=== PATIENT | male | born 1960 | race Caucasian/White ===

== ENCOUNTER 2017-04-14 10:59 | Emergency (ER) | payer OTHER ==
--- NOTE | 2017-04-14 13:36 | DIAGNOSTIC IMAGING REPORT ---
PROCEDURE: US ABDOMEN ULTRASOUND-LIMITED INDICATION: RUQ ABDO PAIN TECHNIQUE: Avery scale and color Doppler sonographic images were obtained of the right upper quadrant. COMPARISON: None. FINDINGS: The liver is normal size and contour with moderate diffuse parenchymal hyper echogenicity. No mass or biliary dilatation. There is relative hypo echogenicity in the gallbladder fossa. The gallbladder is normal without stones or sludge. Normal wall thickness at 2.1 mm. No pericholecystic fluid or Hinton's sign. The common duct is normal measuring 5.0 mm. The visible portion of the inferior vena cava, abdominal aorta, and portal vein appear normal with appropriate direction of flow in the portal vein. The right kidney is normal measuring 10.3 cm. No free fluid in the right upper quadrant. IMPRESSION: 1. Moderate hepatic steatosis (or other intrinsic liver disease). 2. Normal gallbladder.
--- NOTE | 2017-04-14 14:06 | ED NURSING NOTES ---
Clinical Report - Nurses [facility] [address] [place] [address] 04/14/2017 11:01 Patient: ANGIE TEJEDA TRIAGE Triage time 11:Apr 14 2017. Acuity: LEVEL 3. Chief Complaint: ABDOMINAL PAIN. Alert. No acute distress. SOLANGE COMA SCORE: Solange Coma Scale: 15- eyes open spontaneously (4); best verbal response- oriented x 4 (5); best motor response- obeys commands (6). --11:17 Angeles Weiss R.N. 11:12 04/14/17. BP: 141/88. HR: 80. RR: 16. O2 saturation: 98%. Temp: 98.4 F. Pain level now: 05/06. --11:17 Angeles Weiss R.N. Weight: 101.6 kg stated. Height/Length: 69 inches Per Patient. BMI: 33.1. --11:15 Angeles Weiss R.N. Medications [place] Oral. --11:13 Angeles Weiss R.N. AmLODIPine Besylate Oral. --11:13 Angeles Weiss R.N. Allergies None. --11:13 Angeles Weiss R.N. History Arrived by private vehicle. Historian: patient. This is a recurrent problem. (September 2016). Last oral intake by patient was 8 hours ago. 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 PAST MEDICAL HX: Immunizations: status is unknown. SOCIAL HX: Never smoker. Regular alcohol use. No drug use. No recent travel. No infectious disease exposure. No known contact with a sick individual. SELF HARM ASSESSMENT: A self harm assessment was performed. The patient answered "no" to the question "Do you have thoughts of harming or killing yourself?". FALL RISK ASSESSMENT: Fall risk assessment completed. No fall risk identified. NUTRITIONAL RISK ASSESSMENT: The nutritional risk assessment revealed no deficiencies. FUNCTIONAL ASSESSMENT: Functional assessment: no impairments noted. LEARNING NEEDS ASSESSMENT: The learning needs assessment revealed no barriers. ABUSE ASSESSMENT: Abuse assessment: The patient was asked "Do you feel safe in your home?". SKIN INTEGRITY ASSESSMENT: Skin integrity risk assessment completed. No skin integrity risk identified. --11:17 Angeles Weiss R.N. PROBLEMS: Hypertension. --11:14 Angeles Weiss R.N. ADDITIONAL SURGERIES: Hip Surgery. --11:14 Angeles Weiss R.N. Interventions ID band on patient. --11:17 Angeles Weiss R.N. PHYSICAL ASSESSMENT GENERAL / NEURO / PSYCH: Alert. Oriented X 4. Appears in no acute distress. RESPIRATORY: Respirations not labored. CVS: Capillary refill less than 2 seconds. GI / : Abdomen soft. Abdominal tenderness in the upper abdomen. SKIN: Skin is warm and dry. --11:18 Angeles Weiss R.N. NURSING PROGRESS NOTES Patient gowned. Head of bed elevated. Patient identifiers checked. Call light placed in reach. Side rails up x 1. Bed placed in lowest position. Brakes of bed on. Patient ready for evaluation- chart flagged. --11:18 Angeles Weiss R.N. 11:49 04/14/2017 Toradol (Ketorolac Tromethamine) IM 60 mg given. Given in the left ventral gluteus (split dose). Allergies verified and confirmed 5 rights. --11:49 Angeles Weiss R.N. DISPOSITION / DISCHARGE Departure time: 14:22 Apr 14 2017. No learning barriers present. Discharge instructions provided and reviewed with the patient and the patient left prior to discharge education being provided. Reviewed medication(s) side effects, precautions, dosing and course information. Prescription(s) given to the patient. Patient verbalized understanding. Written instructions provided in [place]. The patient was discharged home. He left the Emergency Department ambulatory and via private vehicle. Patient driving. ( pt left department. When nurse went to have admitting send rx and dc instructions pt was in lobby stating that he went and ordered food. pt signed dc instructions but did not return to department for last set of vital signs.). --14:22 Angeles Weiss R.N. Locked/Released at 04/14/2017 14:23 by Angeles Weiss R.N.
--- NOTE | 2017-04-14 14:06 | ED CLINICAL REPORT ---
Clinical Report - Physicians/Mid Levels [facility] [address] [place] [address] 04/14/2017 11:01 Patient: ANGIE TEJEDA Time Seen: 1135. Arrived- By private vehicle. Historian- patient. HISTORY OF PRESENT ILLNESS Chief Complaint: ABDOMINAL PAIN. At its maximum, severity described as moderate. When seen in the E.D., it was almost gone. Modifying factors- (does not know what makes it better or worse.). It is described as sharp. No radiation. It is described as located in the right upper quadrant. This started past several days and is still present but is improving. It was abrupt in onset and has been intermittent but is not gone now. No nausea, loss of appetite, vomiting or diarrhea. No additional abdominal pain. No recent travel. Similar symptoms previously: None. Recent medical care: The patient was seen recently in a clinic. ( had laboratory studies drawn and was told to go to the emergency department for evaluation.). REVIEW OF SYSTEMS No chest pain, difficulty breathing or skin rash. All systems otherwise negative, except as recorded above. PAST HISTORY See nurses notes. Medications: AmLODIPine Besylate Oral. [place] Oral. Allergies: None. SOCIAL HISTORY Never smoker. No alcohol use or drug use. No recent travel. Is a local resident. ADDITIONAL NOTES The nursing notes have been reviewed. PHYSICAL EXAM Vital Signs: 04/14/2017 11:12 BP: 141/88. HR: 80. RR: 16. O2 saturation: 98%. Temp: 98.4 F. Pain level now: 6/10. Oxygen saturation normal. Appearance: Alert. Oriented X3. No acute distress. Eyes: Pupils equal, round and reactive to light. Eyes normal inspection. No scleral icterus or pale conjunctivae. ENT: Ears normal. Nose normal. Pharynx normal. Neck: Normal inspection. Neck supple. CVS: Normal heart rate and rhythm. Heart sounds normal. Pulses normal. Respiratory: No respiratory distress. Breath sounds normal. Chest nontender. No rales, rhonchi or wheezes. Abdomen: Soft and nontender. Bowel sounds normal. No mass. (negative Hinton's. No tenderness at McBurney's. No rebound or guarding.). Skin: Skin warm and dry. Normal skin color. No rash. Normal skin turgor. Extremities: Extremities exhibit normal ROM. No lower extremity edema. Neuro: Oriented X 3. No motor deficit. No sensory deficit. PROGRESS AND PROCEDURES Course of Care: he patient is a pleasant 57-year-old male presenting for evaluation of epigastric/right upper quadrant abdominal pain. Because the patient's presentation, differential diagnosis includes biliary colic versus bronchitis versus hepatitis. Patient is agreeable to the treatment and plan. All questions have been answered. P next-door and does not want his blood studies to be taken again. Patient is resting in bed and in no acute distress. abdomen has an overall benign examination. Patient will be evaluated with ultrasound. Patient's workup does not show any acute abnormalities except for hepatic steatosis. 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 Patient continues to decline this offer is at this time. Had a discussih to symptoms here In the emergency department. Patient currently States he does not want to have been drawn and will follow-up in the clinic. Patient states he feels overall much better and would like to go home. I discussion with the patient in regards to his workup here in the emergency department and diagnostic uncertainty particularly withnot obtaining laboratory studies. Patient expressed full understanding of these limitations and is agreeable to being discharged. Do not feel I can force the patient undergoes invasive diagnostic testing particularly repeat testing. The patient understands he is welcome to return to the emergency department at any time for reevaluation. Patient continues to be nontoxic and in no acute distress. Repeat examination is benign. Because of this, feel the patient is a stable outpatient candidate. Discussed with the patient is workup here in the emergency department including diagnosis, home care, follow-up, and return precautions. All questions have been answered. The patient expressed understanding of these instructions and was agreeable to them. Disposition: Discharged. Condition: good. CLINICAL IMPRESSION Acute right upper quadrant abdominal pain of unknown cause. hepatic steatosis (fatty liver). INSTRUCTIONS Warnings: GENERAL WARNINGS: Return or contact your physician immediately if your condition worsens or changes unexpectedly, if not improving as expected, or if other problems arise. SPECIFICALLY, return if you develop pain, fever, vomiting, the inability to keep fluids down, blood in vomitus, blood in diarrhea, fainting or lightheadedness. Your Current Medications: CONTINUE TAKING THE FOLLOWING MEDICATIONS: AmLODIPine Besylate Oral. [place] Oral. Prescription Medications: Motrin 600 mg tablets: take 1 tablet orally every 6 hours as needed for pain, stiffness or swelling. Dispense thirty (30). No refill. Substitution is permissible. (take with food) Follow-up: Return to the emergency department as needed. Follow up with your doctor in three days. Reason for referral: recheck today's concerns. Summary of care provided to patient via paper. Screening today revealed the patient's blood pressure to be in the normal range. The patient should follow up with a primary care provider for blood pressure management. Understanding of the discharge instructions verbalized by patient. (Electronically signed by Efrain Pagan Dr. 04/20/2017 14:47)
--- NOTE | 2017-04-14 14:06 | ED NURSING NOTES ---
Clinical Report - Nurses [facility] [address] [place] [address] 04/14/2017 11:01 Patient: ANGIE TEJEDA TRIAGE Triage time 11:Apr 14 2017. Acuity: LEVEL 3. Chief Complaint: ABDOMINAL PAIN. Alert. No acute distress. SOLANGE COMA SCORE: Solange Coma Scale: 15- eyes open spontaneously (4); best verbal response- oriented x 4 (5); best motor response- obeys commands (6). --11:17 Angeles Weiss R.N. 11:12 04/14/17. BP: 141/88. HR: 80. RR: 16. O2 saturation: 98%. Temp: 98.4 F. Pain level now: 05/06. --11:17 Angeles Weiss R.N. Weight: 101.6 kg stated. Height/Length: 69 inches Per Patient. BMI: 33.1. --11:15 Angeles Weiss R.N. Medications [place] Oral. --11:13 Angeles Weiss R.N. AmLODIPine Besylate Oral. --11:13 Angeles Weiss R.N. Allergies None. --11:13 Angeles Weiss R.N. History Arrived by private vehicle. Historian: patient. This is a recurrent problem. (September 2016). Last oral intake by patient was 8 hours ago. 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 PAST MEDICAL HX: Immunizations: status is unknown. SOCIAL HX: Never smoker. Regular alcohol use. No drug use. No recent travel. No infectious disease exposure. No known contact with a sick individual. SELF HARM ASSESSMENT: A self harm assessment was performed. The patient answered "no" to the question "Do you have thoughts of harming or killing yourself?". FALL RISK ASSESSMENT: Fall risk assessment completed. No fall risk identified. NUTRITIONAL RISK ASSESSMENT: The nutritional risk assessment revealed no deficiencies. FUNCTIONAL ASSESSMENT: Functional assessment: no impairments noted. LEARNING NEEDS ASSESSMENT: The learning needs assessment revealed no barriers. ABUSE ASSESSMENT: Abuse assessment: The patient was asked "Do you feel safe in your home?". SKIN INTEGRITY ASSESSMENT: Skin integrity risk assessment completed. No skin integrity risk identified. --11:17 Angeles Weiss R.N. PROBLEMS: Hypertension. --11:14 Angeles Weiss R.N. ADDITIONAL SURGERIES: Hip Surgery. --11:14 Angeles Weiss R.N. Interventions ID band on patient. --11:17 Angeles Weiss R.N. PHYSICAL ASSESSMENT GENERAL / NEURO / PSYCH: Alert. Oriented X 4. Appears in no acute distress. RESPIRATORY: Respirations not labored. CVS: Capillary refill less than 2 seconds. GI / : Abdomen soft. Abdominal tenderness in the upper abdomen. SKIN: Skin is warm and dry. --11:18 Angeles Weiss R.N. NURSING PROGRESS NOTES Patient gowned. Head of bed elevated. Patient identifiers checked. Call light placed in reach. Side rails up x 1. Bed placed in lowest position. Brakes of bed on. Patient ready for evaluation- chart flagged. --11:18 Angeles Weiss R.N. 11:49 04/14/2017 Toradol (Ketorolac Tromethamine) IM 60 mg given. Given in the left ventral gluteus (split dose). Allergies verified and confirmed 5 rights. --11:49 Angeles Weiss R.N. DISPOSITION / DISCHARGE Departure time: 14:22 Apr 14 2017. No learning barriers present. Discharge instructions provided and reviewed with the patient and the patient left prior to discharge education being provided. Reviewed medication(s) side effects, precautions, dosing and course information. Prescription(s) given to the patient. Patient verbalized understanding. Written instructions provided in [place]ian. The patient was discharged home. He left the Emergency Department ambulatory and via private vehicle. Patient driving. ( pt left department. When nurse went to have admitting send rx and dc instructions pt was in lobby stating that he went and ordered food. pt signed dc instructions but did not return to department for last set of vital signs.). --14:22 Angeles Weiss R.N. Locked/Released at 04/14/2017 14:23 by Angeles Weiss R.N.
--- NOTE | 2017-04-14 14:07 | ED ORDER SUMMARY ---
..... Patient: ANGIE TEJEDA OrderSheet [facility] VisitID: [id number] [place] [address] 57y, M Registration Date/Time: 04/14/2017 ORDER SHEET Weight: 101.6 kg (stated) Allergies: None GENERAL ORDERS: US Abdomen Limited (No) Urgent (11:41 04/14/2017 Addison Jules) ([facility] 11:58 [facility]) (14:23 Rah R.N.) MEDICATION ORDERS: Toradol IM 60 mg (NOW) (11:43 04/14/2017 Addison Jules) (11:49 Rah R.N.) IV FLUIDS: ORDER SHEET NOTES: [Electronically signed by Angeles Weiss R.N. (14:04/14/2017)] [Electronically signed by Efrain Pagan Dr. (14:47 04/20/2017)] [Electronically locked/signed by Angeles Weiss R.N. (14:04/14/2017)]
--- NOTE | 2017-04-14 14:07 | ED ORDER SUMMARY ---
..... Patient: ANGIE TEJEDA OrderSheet [facility] VisitID: [id number] [place] [address] 57y, M Registration Date/Time: 04/14/2017 ORDER SHEET Weight: 101.6 kg (stated) Allergies: None GENERAL ORDERS: US Abdomen Limited (No) Urgent (11:41 04/14/2017 Addison Jules) ([facility] 11:58 [facility]) (14:23 Rah R.N.) MEDICATION ORDERS: Toradol IM 60 mg (NOW) (11:43 04/14/2017 Addison Jules) (11:49 Rah R.N.) IV FLUIDS: ORDER SHEET NOTES: [Electronically signed by Angeles Weiss R.N. (14:04/14/2017)] [Electronically signed by Efrain Pagan Dr. (14:47 04/20/2017)] [Electronically locked/signed by Angeles Weiss R.N. (14:04/14/2017)]
--- NOTE | 2017-04-20 14:48 | ED MAR SUMMARY ---
..... Medication Administration Record [facility] [address] [place] [address] Patient: ANGIE TEJEDA Visit ID: [id number] 57y, M Weight: 101.6 kg Height/Length: 69 in BMI: 33.1 ALLERGIES: None Given 11:49 04/14/2017 Angeles Weiss R.N. Medication Administered: TORADOL [IM] (KETOROLAC TROMETHAMINE), Dose: 60 mg IM. Medication Ordered: Toradol IM 60 mg (NOW).
--- NOTE | 2017-04-20 14:48 | ED MED RECONCILIATION SUMMARY ---
Patient: ANGIE TEJEDA Medication Reconciliation Report [facility] VisitID: [id number] [address] [place] [address] 57y, M Registration Date/Time: 04/14/2017 Weight: 101.6 kg Height/Length: 69 in. BMI: 33.1 ALLERGIES: None The patient's Home Medications are listed below: CONTINUE TAKING THE FOLLOWING MEDICATIONS: AmLODIPine Besylate Oral [place] Oral The source(s) of the original Home Medication information: Not obtained. The following Medications were given to the patient in the Emergency Department: Toradol [IM] IM 60 mg, administered: 04/14/2017 11:49:00 AM The following Medications were prescribed to the patient: Motrin 600 mg tablets: take 1 tablet orally every 6 hours as needed for pain, stiffness or swelling. Dispense thirty (30). No refill. Substitution is permissible.(take with food) -- Efrain Pagan Dr.
--- NOTE | 2017-04-20 14:48 | ED MAR SUMMARY ---
..... Medication Administration Record [facility] [address] [place] [address] Patient: ANGIE TEJEDA Visit ID: [id number] 57y, M Weight: 101.6 kg Height/Length: 69 in BMI: 33.1 ALLERGIES: None Given 11:49 04/14/2017 Angeles Weiss R.N. Medication Administered: TORADOL [IM] (KETOROLAC TROMETHAMINE), Dose: 60 mg IM. Medication Ordered: Toradol IM 60 mg (NOW).
--- NOTE | 2017-04-20 14:48 | ED MED RECONCILIATION SUMMARY ---
Patient: ANGIE TEJEDA Medication Reconciliation Report [facility] VisitID: [id number] [address] [place] [address] 57y, M Registration Date/Time: 04/14/2017 Weight: 101.6 kg Height/Length: 69 in. BMI: 33.1 ALLERGIES: None The patient's Home Medications are listed below: CONTINUE TAKING THE FOLLOWING MEDICATIONS: AmLODIPine Besylate Oral [place] Oral The source(s) of the original Home Medication information: Not obtained. The following Medications were given to the patient in the Emergency Department: Toradol [IM] IM 60 mg, administered: 04/14/2017 11:49:00 AM The following Medications were prescribed to the patient: Motrin 600 mg tablets: take 1 tablet orally every 6 hours as needed for pain, stiffness or swelling. Dispense thirty (30). No refill. Substitution is permissible.(take with food) -- Efrain Pagan Dr.
--- NOTE | 2017-04-20 14:48 | ED DISCHARGE INSTRUCTIONS ---
Patient: ANGIE TEJEDA General Instructions [facility] VisitID: [id number] [place] [address] 57y, M Registration Date/Time: 04/14/2017 Acute right upper quadrant abdominal pain of unknown cause. hepatic steatosis (fatty liver). INSTRUCTIONS Warnings: GENERAL WARNINGS: Return or contact your physician immediately if your condition worsens or changes unexpectedly, if not improving as expected, or if other problems arise. SPECIFICALLY, return if you develop pain, fever, vomiting, the inability to keep fluids down, blood in vomitus, blood in diarrhea, fainting or lightheadedness. Your Current Medications: CONTINUE TAKING THE FOLLOWING MEDICATIONS: AmLODIPine Besylate Oral. [place] Oral. Prescription Medications: Motrin 600 mg tablets: take 1 tablet orally every 6 hours as needed for pain, stiffness or swelling. Dispense thirty (30). No refill. Substitution is permissible. (take with food) Follow-up: Return to the emergency department as needed. Follow up with your doctor in three days. Reason for referral: recheck today's concerns. Summary of care provided to patient via paper. Screening today revealed the patient's blood pressure to be in the normal range. The patient should follow up with a primary care provider for blood pressure management. Understanding of the discharge instructions verbalized by patient. ADDITIONAL INFORMATION Abdominal Pain, Unknown Cause (Female) The exact cause of your abdominal (stomach) pain is not certain. This does not mean that this is something to worry about, or the right tests were not done. Everyone likes to know the exact cause of the problem, but sometimes with abdominal pain, there is no clear-cut cause, and this could be a good thing. The good news is that your symptoms can be treated, and you will feel better. Your condition does not seem serious now; however, sometimes the signs of a serious problem may take more time to appear. For this reason,it is important for you to watch for any new symptoms, problems,or worsening of your condition. Over the next few days, the abdominal pain may come and go, or be continuous. Other common symptoms can include nausea and vomiting. Sometimes it can be difficult to tell if you feel nauseous, you may just feel bad and not associate that feeling with nausea. Constipation, diarrhea, and a fever may go along with the pain. The pain may continue even if treated correctly over the following days. Depending on how things go, sometimes the cause can become clear and may require further or different treatment. Additional evaluations, medications, or tests may be needed. Home care Your health care provider may prescribe medications for pain, symptoms, or an infection. Follow the health care provider's instructions for taking these medications. General care Rest until your next exam. No strenuous activities. Try to find positions that ease discomfort. A small pillow placed on the abdomen may help relieve pain. Something warm on your abdomen (such as a heating pad) may help, but be careful not to burn yourself. Diet Do not force yourself to eat, especially if having cramps, vomiting, or diarrhea. Water is important so you do not get dehydrated. Soup may also be good. Sports drinks may also help, especially if they are not too acidic. Make sure you don't drink sugary drinks as this can make things worse. Take liquids in small amounts. Do not guzzle them. Caffeine sometimes makes the pain and cramping worse. Avoid dairy products if you have vomiting or diarrhea. Don't eat large amounts at a time. Wait a few minutes between bites. Eat a diet low in fiber (called a low-residue diet). Foods allowed include refined breads, white rice, fruit and vegetable juices without pulp, tender meats. These foods will pass more easily through the intestine. Avoid whole-grain foods, whole fruits and vegetables, meats, seeds and nuts, fried or fatty foods, dairy, alcohol and spicy foods until your symptoms go away. Follow-up care Follow up with your health care provider as instructed, or if your pain does not begin to improve in the next 24 hours. When to seek medical care Seek prompt medical care if any of the following occur: Pain gets worse or moves to the right lower abdomen New or worsening vomiting or diarrhea Swelling of the abdomen Unable to pass stool for more than three days Fever of 100.4F (38C) or higher, or as directed by your healthcare provider. Blood in vomit or bowel movements (dark red or black color) Jaundice (yellow color of eyes and skin) Weakness, dizziness Chest, arm, back, neck or jaw pain Unexpected vaginal bleeding or missed period Call 911 Call emergency services if any of the following occur: Trouble breathing Confusion Fainting or loss of consciousness Rapid heart rate Seizure Ibuprofen Oral tablet What is this medicine? IBUPROFEN (eye BYOO proe fen) is a non-steroidal anti-inflammatory drug (NSAID). It is used for dental pain, fever, headaches or migraines, osteoarthritis, rheumatoid arthritis, or painful monthly periods. It can also relieve minor aches and pains caused by a cold, flu, or sore throat. How should I use this medicine? Take this medicine by mouth with a glass of water. Follow the directions on the prescription label. Take this medicine with food if your stomach gets upset. Try to not lie down for at least 10 minutes after you take the medicine. Take your medicine at regular intervals. Do not take your medicine more often than directed. A special MedGuide will be given to you by the pharmacist with each prescription and refill. Be sure to read this information carefully each time. Talk to your coroner/medical examiner regarding the use of this medicine in children. Special care may be needed. What side effects may I notice from receiving this medicine? Side effects that you should report to your doctor or health resident care associate as soon as possible: allergic reactions like skin rash, itching or hives, swelling of the face, lips, or tongue black or bloody stools, blood in the urine or in vomit breathing problems changes in vision chest pain general ill feeling or flu-like symptoms nausea or vomiting redness, blistering, peeling or loosening of the skin, including inside the mouth slurred speech or weakness on one side of the body stomach pain unexplained weight gain or swelling unusually weak or tired yellowing of eyes or skin Side effects that usually do not require medical attention (report to your doctor or health resident care associate if they continue or are bothersome): constipation or diarrhea dizziness gas or heartburn stomach upset What may interact with this medicine? Do not take this medicine with any of the following medications: cidofovir ketorolac methotrexate pemetrexed This medicine may also interact with the following medications: alcohol aspirin diuretics lithium other drugs for inflammation like prednisone warfarin What if I miss a dose? If you miss a dose, take it as soon as you can. If it is almost time for your next dose, take only that dose. Do not take double or extra doses. Where should I keep my medicine? Keep out of the reach of children. Store at room temperature between 15 and 30 degrees C (59 and 86 degrees F). Keep container tightly closed. Throw away any unused medicine after the expiration date. What should I tell my health care provider before I take this medicine? They need to know if you have any of these conditions: asthma cigarette smoker drink more than 3 alcohol containing drinks a day heart disease or circulation problems such as heart failure or leg edema (fluid retention) high blood pressure kidney disease liver disease stomach bleeding or ulcers an unusual or allergic reaction to ibuprofen, aspirin, other NSAIDS, other medicines, foods, dyes, or preservatives or trying to get breast-feeding What should I watch for while using this medicine? Tell your doctor or healthcare professional if your symptoms do not start to get better or if they get worse. This medicine does not prevent heart attack or stroke. In fact, this medicine may increase the chance of a heart attack or stroke. The chance may increase with longer use of this medicine and in people who have heart disease. If you take aspirin to prevent heart attack or stroke, talk with your doctor or health resident care associate. Do not take other medicines that contain aspirin, ibuprofen, or naproxen with this medicine. Side effects such as stomach upset, nausea, or ulcers may be more likely to occur. Many medicines available without a prescription should not be taken with this medicine. This medicine can cause ulcers and bleeding in the stomach and intestines at any time during treatment. Ulcers and bleeding can happen without warning symptoms and can cause . To reduce your risk, do not smoke cigarettes or drink alcohol while you are taking this medicine. You may get drowsy or dizzy. Do not drive, use machinery, or do anything that needs mental alertness until you know how this medicine affects you. Do not stand or sit up quickly, especially if you are an older patient. This reduces the risk of dizzy or fainting spells. This medicine can cause you to bleed more easily. Try to avoid damage to your teeth and gums when you brush or floss your teeth. You have been given the following additional information: Abdominal Pain, Unknown Cause, (Female) Ibuprofen Oral tablet (Electronically signed by Efrain Pagan Dr. 04/20/2017 14:47)
== END 2017-04-14 14:20 | disposition home or self-care (01) ==
LOC: ED SRH 10:59
DX: R10.11 Right upper quadrant pain (principal); K76.0 Fatty (change of) liver, not elsewhere classified; Z79.899 Other long term (current) drug therapy; Z79.891 Long term (current) use of opiate analgesic

== ENCOUNTER 2017-04-15 08:38 | Emergency (ER) | payer OTHER ==
--- NOTE | 2017-04-15 10:25 | ED ORDER SUMMARY ---
..... Patient: ANGIE TEJEDA OrderSheet [facility] VisitID: [id number] [place] [address] 57y, M Registration Date/Time: 04/15/2017 ORDER SHEET Weight: 101.6 kg (stated) Allergies: None GENERAL ORDERS: CBC w Diff Urgent (:04/15/2017 Halina Jules) (Ack 9:17 Yousif) (9:34 MWinterer R.N.) CMP Urgent (:04/15/2017 Halina Jules) (Ack 9:17 Yousif) (9:34 MWinterer R.N.) UA-Culture if indicated Urgent (:04/15/2017 Halina Jules) (Ack 9:17 Yousif) (10:00 MWinterer R.N.) Urine Drug Screen Urgent (:04/15/2017 Halina Jules) (Ack 9:17 Yousif) (10:00 MWinterer R.N.) Amylase Urgent (:04/15/2017 Halina Jules) (Ack 9:17 Yousif) (9:34 MWinterer R.N.) Lipase Urgent (:04/15/2017 Halina Jules) (Ack 9:17 Yousif) (9:34 MWinterer R.N.) MEDICATION ORDERS: GI Cocktail WHITE PO 30 mL with Lidocaine Viscous Mouth/Throat 15 mL, Maalox Plus Oral 15 mL (NOW) (:04/15/2017 Halina Juels) (Ack 9:21 MWinterer R.N.) (9:34 MWinterer R.N.) IV FLUIDS: IV NS : initial bolus none -, then 1000 mL/hr for X1 (NOW) (09:04/15/2017 Halina Jules) (Ack 9:21 MWinterer R.N.) (9:34 MWinterer R.N.) Famotidine IV 20 mg/50mL (NOW) (09:45 04/15/2017 Halina Jules) (Ack 9:52 MWinterer R.N.) (10:00 MWinterer R.N.) ORDER SHEET NOTES: [Electronically signed by Brandin Minor Dr. (10:25 04/15/2017)] [Electronically signed by Una Weaver R.N. (11:37 04/15/2017)] [Electronically locked/signed by Una Weaver R.N. (11:37 04/15/2017)]
--- NOTE | 2017-04-15 10:25 | ED CLINICAL REPORT ---
Clinical Report - Physicians/Mid Levels [facility] [address] [place] [address] 04/15/2017 8:39 Patient: ANGIE TEJEDA Time Seen: 08:59; initial patient contact. Arrived- By private vehicle. Historian- patient. RETURN VISIT: recently seen in this ED by another ED physician. Seen now for the same problem as before. HISTORY OF PRESENT ILLNESS Chief Complaint: ABDOMINAL PAIN. At its maximum, severity described as mild. When seen in the E.D., severity described as mild. It is described as cramping and burning. No radiation. It is described as located in the upper abdomen. This started several months ago and is still present. It was gradual in onset and has been intermittent. No nausea, loss of appetite, vomiting or diarrhea. Similar symptoms previously: Many times. Recent medical care: The patient was seen recently at this facility in a clinic. REVIEW OF SYSTEMS No constipation, hematemesis, bloody stools, fever or chills. He has had black stools. All systems otherwise negative, except as recorded above. PAST HISTORY Abdominal Pain. Hypertension. SURGERIES: Hip Surgery. SOCIAL HISTORY Never smoker. Regular alcohol use. No drug use. ADDITIONAL NOTES The nursing notes have been reviewed. PHYSICAL EXAM Vital Signs: 04/15/2017 08:47 BP: 144/84. HR: 62. RR: 16. O2 saturation: 98%. Temp: 97.7 F. Pain level now: 810. Have been reviewed. Hypertensive. Heart rate normal. Respiratory rate normal. Temperature normal. Oxygen saturation normal. Appearance: Alert. Oriented X3. No acute distress. Eyes: Eyes normal inspection. No scleral icterus. ENT: Dry mucous membranes present. CVS: Normal heart rate and rhythm. Heart sounds normal. Respiratory: No respiratory distress. Breath sounds normal. Abdomen: Soft. Mild tenderness in the upper abdomen. No guarding, rebound tenderness or Hinton's sign present. Bowel sounds normal. No organomegaly. No mass. Rectal: Brown stool. Rectal exam normal and nontender. Stool heme negative; hemoccult senior quality assurance analyst check passed. (POC test reference range: negative). Skin: Skin warm and dry. Normal skin color. Extremities: No lower extremity edema. Neuro: Oriented X 3. LABS, X-RAYS, AND EKG Laboratory Tests: UA-Culture if indicated: (JIGAR: 04/15/2017 10:00) ( MsgRcvd 04/15/2017 10:19) Final results Test Result Flag Units (Reference) URINE COLOR YELLOW URINE APPEARANCE CLEAR URINE GLUCOSE NEGATIVE (NEGATIVE) URINE BILIRUBIN NEGATIVE (NEGATIVE) URINE KETONE NEGATIVE (NEGATIVE) URINE SPECIFIC GRAVITY 1.015 (1.010-1.030) URINE PH 6.0 (5.0-8.0) URINE PROTEIN NEGATIVE (NEGATIVE) URINE UROBILINOGEN 0.2 EU/dL (0.2-1.0) URINE NITRITE NEGATIVE (NEGATIVE) URINE BLOOD NEGATIVE (NEGATIVE) URINE LEUK ESTERASE NEGATIVE (NEGATIVE) URINE RBC NONE SEEN rbc/hpf (0-1) URINE WBC NONE SEEN wbc/hpf (0-1) URINE EPITHELIAL CELLS 1-3 EPI/hpf (0-5) URINE BACTERIA NONE SEEN (NONE SEEN) URINE COMMENT CULT NOT INDICATED URINE CULTURES ARE SET-UP BASED ON THE FOLLOWING CRITERIA:POSITIVE NITRITEPOSITIVE LEUKOCYTE ESTERASEGREATER THAN 10 WHITE BLOOD CELLSMODERATE (2+) OR GREATER BACTERIA CBC w Diff: (JIGAR: 04/15/2017 09:28) ( MsgRcvd 04/15/2017 09:43) Final results Test Result Flag Units (Reference) WHITE BLOOD COUNT 6.4 K/uL (4.5-11.5) RED BLOOD COUNT 4.19 L M/uL (4.50-5.90) HEMOGLOBIN 13.0 L gm/dL (13.5-17.5) HEMATOCRIT 37.7 L % (41.0-53.0) MEAN CELL VOLUME 90 fL (80-100) MEAN CORPUSCULAR HGB 31 pg (26-34) MEAN CORPUSCULAR HGB CONC 34 g/dL (31-37) RED CELL DISTRIBUTION WIDTH 13.4 % (11.6-14.8) PLATELET COUNT 247 K/uL (150-400) NEUTROPHIL % 54.0 % (50-75) LYMPH % 35.0 % (25-40) MONO % 8.7 % (3-14) EOSINOPHIL % 2.0 % (0-4) BASOPHIL % 0.3 % (0-2) Urine Drug Screen: (JIGAR: 04/15/2017 10:00) ( MsgRcvd 04/15/2017 10:20) Final results Test Result Flag Units (Reference) AMPHETAMINE/METHAMPHETAMINE NEGATIVE (NEGATIVE) BARBITURATE NEGATIVE (NEGATIVE) BENZODIAZEPINE NEGATIVE (NEGATIVE) CANNABINOID NEGATIVE (NEGATIVE) COCAINE NEGATIVE (NEGATIVE) ECSTASY NEGATIVE (NEGATIVE) METHADONE NEGATIVE (NEGATIVE) OPIATE NEGATIVE (NEGATIVE) The urine drug screen is a qualitative screening test fordrug overdose and abuse. All screen results should beconsidered as presumptive.Drugs screened for are as follows:BenzodiazepinesCocaineAmphetamines/MetamphetaminesTHC (Tetrahydrocannabinol)OpiatesBarbituratesEcstasyMethadonePositive results are unconfirmed. For confirmation, notifythe lab for the specimen to be sent to the reference lab.All confirmations must be performed by a differentmethodology.The ingestion of natural herbal and plant productscontaining Ephedra/Ephedra metabolites can produce in urineone or more substances capable of cross reacting withamphetamine/methamphetamine immunoassays. These testsprovide a preliminary result only. A more specificalternative chemical method must be used to obtain aconfirmed analytical result. CMP: (JIGAR: 04/15/2017 09:28) ( MsgRcvd 04/15/2017 10:05) Final results Test Result Flag Units (Reference) GLUCOSE 103 mg/dL (70-110) BUN 19 H mg/dL (7-18) CREATININE 1.0 mg/dL (0.6-1.3) Estimated GFR >60 mL/min Estimated GFR- >60 mL/min Note: Persistent reduction over 3 months in eGFR<60 mL/min/1.73 m2 defines CKD. Patients with eGFR values>=60 mL/min/1.73 m2 may also have CKD if evidence ofpersistent proteinuria. Additional information may be foundat www.kidney.org. SODIUM 140 mmol/L (136-145) POTASSIUM 4.0 mmol/L (3.5-5.1) CHLORIDE 105 mmol/L (98-107) CARBON DIOXIDE 26 mmol/L (21-32) CALCIUM 8.3 L mg/dL (8.5-10.1) TOTAL PROTEIN 7.0 g/dL (6.4-8.2) ALBUMIN 3.8 g/dL (3.3-5.0) BILIRUBIN, TOTAL 0.8 mg/dL (0.0-1.0) ALKALINE PHOSPHATASE 70 U/L (46-116) AST (SGOT) 28 U/L (15-37) ALT (SGPT) 64 U/L (12-78) LIPASE 119 U/L (73-393) AMYLASE 46 U/L (25-115) . PROGRESS AND PROCEDURES Course of Care: GI Cocktail composed of 15 mL viscous lidocaine and antacid PO given. The patient's symptoms are now gone. Physical exam findings are improved. Disposition: Discharged home in good and improved condition. Condition: good. CLINICAL IMPRESSION Chronic alcoholic gastritis. No hemorrhagic gastritis. INSTRUCTIONS Avoid alcohol and NSAIDS. NSAIDS include aspirin, ibuprofen (Advil) and naproxen (Aleve). Avoid fatty and fried/greasy foods. No alcohol. Your Current Medications: CONTINUE TAKING THE FOLLOWING MEDICATIONS: AmLODIPine Besylate Oral. [place] Oral. Prescription Medications: Zantac 150 mg: take 1 orally every 12 hours. Dispense sixty (60). No refills. Substitution is permissible. Follow-up: Blood pressure screening was not performed during this visit because the patient has an active diagnosis of hypertension. Follow-up with: Seun Amaya MD, General Surgeon, , [facility], [address] [place] [address] Follow up in about two days. Call for an appointment. (Electronically signed by Brandin Minor Dr. 04/15/2017 10:25)
--- NOTE | 2017-04-15 10:25 | ED ORDER SUMMARY ---
..... Patient: ANGIE TEJEDA OrderSheet [facility] VisitID: [id number] [place] [address] 57y, M Registration Date/Time: 04/15/2017 ORDER SHEET Weight: 101.6 kg (stated) Allergies: None GENERAL ORDERS: CBC w Diff Urgent (:04/15/2017 Halina Jules) (Ack 9:17 Yousif) (9:34 MWinterer R.N.) CMP Urgent (:04/15/2017 Halina Jules) (Ack 9:17 Yousif) (9:34 MWinterer R.N.) UA-Culture if indicated Urgent (:04/15/2017 Halina Jules) (Ack 9:17 Yousif) (10:00 MWinterer R.N.) Urine Drug Screen Urgent (:04/15/2017 Halina Jules) (Ack 9:17 Yousif) (10:00 MWinterer R.N.) Amylase Urgent (:04/15/2017 Halina Jules) (Ack 9:17 Yousif) (9:34 MWinterer R.N.) Lipase Urgent (:04/15/2017 Halina Jules) (Ack 9:17 Yousif) (9:34 MWinterer R.N.) MEDICATION ORDERS: GI Cocktail WHITE PO 30 mL with Lidocaine Viscous Mouth/Throat 15 mL, Maalox Plus Oral 15 mL (NOW) (:04/15/2017 Halina Jules) (Ack 9:21 MWinterer R.N.) (9:34 MWinterer R.N.) IV FLUIDS: IV NS : initial bolus none -, then 1000 mL/hr for X1 (NOW) (09:04/15/2017 Halina Jules) (Ack 9:21 MWinterer R.N.) (9:34 MWinterer R.N.) Famotidine IV 20 mg/50mL (NOW) (09:45 04/15/2017 Halina Jules) (Ack 9:52 MWinterer R.N.) (10:00 MWinterer R.N.) ORDER SHEET NOTES: [Electronically signed by Brandin Minor Dr. (10:25 04/15/2017)] [Electronically signed by Una Weaver R.N. (11:37 04/15/2017)] [Electronically locked/signed by Una Weaver R.N. (11:37 04/15/2017)]
--- NOTE | 2017-04-15 10:25 | ED NURSING NOTES ---
Clinical Report - Nurses [facility] [place] [address] 04/15/2017 8:39 Patient: ANGIE TEJEDA TRIAGE Acuity: LEVEL 3. Chief Complaint: ABDOMINAL PAIN. Alert. No acute distress. SEPSIS SCREEN: Sepsis Screen. Negative (no infection suspected/documented). --08:52 Una Weaver R.N. 08:47 04/15/17. BP: 144/84. HR: 62. RR: 16. O2 saturation: 98%. Temp: 97.7 F (oral). Pain level now: 07/06. --08:52 Una Weaver R.N. Weight: 101.6 kg stated. Height/Length: 69 inches Per Patient. BMI: 33.1. --08:48 Una Weaver R.N. Medications [place] Oral. --08:50 Una Weaver R.N. AmLODIPine Besylate Oral. --08:50 Una Weaver R.N. Medication/allergy information source: the patient. --08:52 Una Weaver R.N. Allergies None. --08:50 Una Weaver R.N. History Arrived by private vehicle. Historian: patient. Accompanied by spouse (dropped off). Primary physician ([facility]). Onset. (months ago). Relates location as generalized across abdomen. ( Pt reports he was seen in this ED yesterday for abd pain he has had "for months". He reports his pain is not getting better..). Reports last BM was yesterday. Treatment BRAZER INDUCTION: Recently seen at this facility and another facility in the ED and a clinic. SOCIAL HX: Never smoker. Regular alcohol use. No drug use. FALL RISK ASSESSMENT: Fall risk assessment completed. No fall risk identified. NUTRITIONAL RISK ASSESSMENT: The nutritional risk assessment revealed no deficiencies. FUNCTIONAL ASSESSMENT: Functional assessment: no impairments noted. LEARNING NEEDS ASSESSMENT: The learning needs assessment revealed no barriers. SKIN INTEGRITY ASSESSMENT: Skin integrity risk assessment completed. No skin integrity risk identified. --08:52 Una Weaver R.N. PROBLEMS: Abdominal Pain. Hypertension. --08:51 Una Weaver R.N. ADDITIONAL SURGERIES: Hip Surgery. --08:51 Una Weaver R.N. Assessment GENERAL / NEURO / PSYCH: Alert. Oriented X 4. Appears in no acute distress. Patient appears calm and cooperative. RESPIRATORY: Respirations not labored. CVS: Capillary refill less than 2 seconds. GI / : Abdomen soft. SKIN: Mucous membranes are pink. Skin is warm and dry. --08:52 Una Weaver R.N. Interventions ID band on patient. To treatment room. --08:52 Una Weaver R.N. PHYSICAL ASSESSMENT 08:52 04/15/17. Ambulatory to room. GENERAL / NEURO / PSYCH: Alert. Oriented X 4. Appears in no acute distress. HEENT: Mucous membranes are pink. RESPIRATORY: Respirations not labored. CVS: Capillary refill less than 2 seconds. GI / : Abdomen soft. SKIN: Skin is warm and dry. --08:52 Una Weaver R.N. NURSING PROGRESS NOTES Patient gowned. Two patient identifiers checked. Checked patient name and birthdate. Call light placed in reach. Side rails up x 1. Bed placed in lowest position. Brakes of bed on. Patient ready for evaluation- chart flagged and ED physician notified. --08:53 Una Weaver R.N. 09:29 04/15/2017 GI COCKTAIL WHITE (Simethicone) PO 30 mL given. Allergies verified and confirmed 5 rights. --09:34 Una Weaver R.N. 09:34 04/15/2017 Site #1 started via IV in the right antecubital space with an 20g angiocath, with aseptic technique and good blood return; one attempt. Blood drawn: rainbow set. Labeled in the presence of the patient and sent to the lab. --09:34 Una Weaver R.N. 09:34 04/15/2017 Started bag #1 1000 mL IV Fluids IV NS (Saline); at 999 mL/hr over 1 hour(s) via site #1 via IV pump. Allergies verified and confirmed 5 rights. IV patency established. IV site checked: no pain, redness, or swelling. IV flushed thoroughly pre- and post-medication administration. --09:34 Una Weaver R.N. 10:00 04/15/2017 Started 20 mg of Famotidine IVPB in bag #1 50 mL; at 100 mL/hr over 30 minute(s) via site #1 via IV pump. Allergies verified and confirmed 5 rights. IV patency established. IV site checked: no pain, redness, or swelling. IV flushed thoroughly pre- and post-medication administration. --10:00 Una Weaver R.N. 10:26 04/15/2017 Famotidine IVPB Discontinued: bag #1 infused. Total amount infused: 50 mL. IV patency established. IV site checked: no pain, redness, or swelling. IV flushed thoroughly. --10:26 Una Weaver R.N. 10:04/15/2017 IV Fluids IV NS Discontinued: bag #1 infused. Total amount infused: 1000 mL. IV patency established. IV site checked: no pain, redness, or swelling. IV flushed thoroughly. --10:26 Una Weaver R.N. DISPOSITION / DISCHARGE Departure time: 1039Apr 15 2017. Condition at departure: improved and stable. No learning barriers present. Discharge instructions provided and reviewed with the patient. Reviewed medication(s) side effects, precautions and dosing information. Prescription(s) given to the patient. Patient verbalized understanding. Written instructions provided in Bel[place]ian. The patient was discharged by the physician. He was discharged home and accompanied by spouse. He left the Emergency Department ambulatory and via private vehicle. Spouse driving. --11:37 Una Weaver R.N. 11:36 04/15/17. BP: 119/72. HR: 65. RR: 16. O2 saturation: 100% on room air. Pain level now: 03/06. --11:37 Una Weaver R.N. 10:37 04/15/2017 Site #1 removed upon discharge. Catheter intact. Manual pressure and bandage applied. --11:37 Una Weaver R.N. Locked/Released at 04/15/2017 11:37 by Una Weaver R.N.
--- NOTE | 2017-04-15 10:25 | ED CLINICAL REPORT ---
Clinical Report - Physicians/Mid Levels [facility] [address] [place] [address] 04/15/2017 8:39 Patient: ANGIE TEJEDA Time Seen: 08:59; initial patient contact. Arrived- By private vehicle. Historian- patient. RETURN VISIT: recently seen in this ED by another ED physician. Seen now for the same problem as before. HISTORY OF PRESENT ILLNESS Chief Complaint: ABDOMINAL PAIN. At its maximum, severity described as mild. When seen in the E.D., severity described as mild. It is described as cramping and burning. No radiation. It is described as located in the upper abdomen. This started several months ago and is still present. It was gradual in onset and has been intermittent. No nausea, loss of appetite, vomiting or diarrhea. Similar symptoms previously: Many times. Recent medical care: The patient was seen recently at this facility in a clinic. REVIEW OF SYSTEMS No constipation, hematemesis, bloody stools, fever or chills. He has had black stools. All systems otherwise negative, except as recorded above. PAST HISTORY Abdominal Pain. Hypertension. SURGERIES: Hip Surgery. SOCIAL HISTORY Never smoker. Regular alcohol use. No drug use. ADDITIONAL NOTES The nursing notes have been reviewed. PHYSICAL EXAM Vital Signs: 04/15/2017 08:47 BP: 144/84. HR: 62. RR: 16. O2 saturation: 98%. Temp: 97.7 F. Pain level now: 810. Have been reviewed. Hypertensive. Heart rate normal. Respiratory rate normal. Temperature normal. Oxygen saturation normal. Appearance: Alert. Oriented X3. No acute distress. Eyes: Eyes normal inspection. No scleral icterus. ENT: Dry mucous membranes present. CVS: Normal heart rate and rhythm. Heart sounds normal. Respiratory: No respiratory distress. Breath sounds normal. Abdomen: Soft. Mild tenderness in the upper abdomen. No guarding, rebound tenderness or Hinton's sign present. Bowel sounds normal. No organomegaly. No mass. Rectal: Brown stool. Rectal exam normal and nontender. Stool heme negative; hemoccult quality control scientist check passed. (POC test reference range: negative). Skin: Skin warm and dry. Normal skin color. Extremities: No lower extremity edema. Neuro: Oriented X 3. LABS, X-RAYS, AND EKG Laboratory Tests: UA-Culture if indicated: (JIGAR: 04/15/2017 10:00) ( MsgRcvd 04/15/2017 10:19) Final results Test Result Flag Units (Reference) URINE COLOR YELLOW URINE APPEARANCE CLEAR URINE GLUCOSE NEGATIVE (NEGATIVE) URINE BILIRUBIN NEGATIVE (NEGATIVE) URINE KETONE NEGATIVE (NEGATIVE) URINE SPECIFIC GRAVITY 1.015 (1.010-1.030) URINE PH 6.0 (5.0-8.0) URINE PROTEIN NEGATIVE (NEGATIVE) URINE UROBILINOGEN 0.2 EU/dL (0.2-1.0) URINE NITRITE NEGATIVE (NEGATIVE) URINE BLOOD NEGATIVE (NEGATIVE) URINE LEUK ESTERASE NEGATIVE (NEGATIVE) URINE RBC NONE SEEN rbc/hpf (0-1) URINE WBC NONE SEEN wbc/hpf (0-1) URINE EPITHELIAL CELLS 1-3 EPI/hpf (0-5) URINE BACTERIA NONE SEEN (NONE SEEN) URINE COMMENT CULT NOT INDICATED URINE CULTURES ARE SET-UP BASED ON THE FOLLOWING CRITERIA:POSITIVE NITRITEPOSITIVE LEUKOCYTE ESTERASEGREATER THAN 10 WHITE BLOOD CELLSMODERATE (2+) OR GREATER BACTERIA CBC w Diff: (JIGAR: 04/15/2017 09:28) ( MsgRcvd 04/15/2017 09:43) Final results Test Result Flag Units (Reference) WHITE BLOOD COUNT 6.4 K/uL (4.5-11.5) RED BLOOD COUNT 4.19 L M/uL (4.50-5.90) HEMOGLOBIN 13.0 L gm/dL (13.5-17.5) HEMATOCRIT 37.7 L % (41.0-53.0) MEAN CELL VOLUME 90 fL (80-100) MEAN CORPUSCULAR HGB 31 pg (26-34) MEAN CORPUSCULAR HGB CONC 34 g/dL (31-37) RED CELL DISTRIBUTION WIDTH 13.4 % (11.6-14.8) PLATELET COUNT 247 K/uL (150-400) NEUTROPHIL % 54.0 % (50-75) LYMPH % 35.0 % (25-40) MONO % 8.7 % (3-14) EOSINOPHIL % 2.0 % (0-4) BASOPHIL % 0.3 % (0-2) Urine Drug Screen: (JIGAR: 04/15/2017 10:00) ( MsgRcvd 04/15/2017 10:20) Final results Test Result Flag Units (Reference) AMPHETAMINE/METHAMPHETAMINE NEGATIVE (NEGATIVE) BARBITURATE NEGATIVE (NEGATIVE) BENZODIAZEPINE NEGATIVE (NEGATIVE) CANNABINOID NEGATIVE (NEGATIVE) COCAINE NEGATIVE (NEGATIVE) ECSTASY NEGATIVE (NEGATIVE) METHADONE NEGATIVE (NEGATIVE) OPIATE NEGATIVE (NEGATIVE) The urine drug screen is a qualitative screening test fordrug overdose and abuse. All screen results should beconsidered as presumptive.Drugs screened for are as follows:BenzodiazepinesCocaineAmphetamines/MetamphetaminesTHC (Tetrahydrocannabinol)OpiatesBarbituratesEcstasyMethadonePositive results are unconfirmed. For confirmation, notifythe lab for the specimen to be sent to the reference lab.All confirmations must be performed by a differentmethodology.The ingestion of natural herbal and plant productscontaining Ephedra/Ephedra metabolites can produce in urineone or more substances capable of cross reacting withamphetamine/methamphetamine immunoassays. These testsprovide a preliminary result only. A more specificalternative chemical method must be used to obtain aconfirmed analytical result. CMP: (JIGAR: 04/15/2017 09:28) ( MsgRcvd 04/15/2017 10:05) Final results Test Result Flag Units (Reference) GLUCOSE 103 mg/dL (70-110) BUN 19 H mg/dL (7-18) CREATININE 1.0 mg/dL (0.6-1.3) Estimated GFR >60 mL/min Estimated GFR- >60 mL/min Note: Persistent reduction over 3 months in eGFR<60 mL/min/1.73 m2 defines CKD. Patients with eGFR values>=60 mL/min/1.73 m2 may also have CKD if evidence ofpersistent proteinuria. Additional information may be foundat www.kidney.org. SODIUM 140 mmol/L (136-145) POTASSIUM 4.0 mmol/L (3.5-5.1) CHLORIDE 105 mmol/L (98-107) CARBON DIOXIDE 26 mmol/L (21-32) CALCIUM 8.3 L mg/dL (8.5-10.1) TOTAL PROTEIN 7.0 g/dL (6.4-8.2) ALBUMIN 3.8 g/dL (3.3-5.0) BILIRUBIN, TOTAL 0.8 mg/dL (0.0-1.0) ALKALINE PHOSPHATASE 70 U/L (46-116) AST (SGOT) 28 U/L (15-37) ALT (SGPT) 64 U/L (12-78) LIPASE 119 U/L (73-393) AMYLASE 46 U/L (25-115) . PROGRESS AND PROCEDURES Course of Care: GI Cocktail composed of 15 mL viscous lidocaine and antacid PO given. The patient's symptoms are now gone. Physical exam findings are improved. Disposition: Discharged home in good and improved condition. Condition: good. CLINICAL IMPRESSION Chronic alcoholic gastritis. No hemorrhagic gastritis. INSTRUCTIONS Avoid alcohol and NSAIDS. NSAIDS include aspirin, ibuprofen (Advil) and naproxen (Aleve). Avoid fatty and fried/greasy foods. No alcohol. Your Current Medications: CONTINUE TAKING THE FOLLOWING MEDICATIONS: AmLODIPine Besylate Oral. [place] Oral. Prescription Medications: Zantac 150 mg: take 1 orally every 12 hours. Dispense sixty (60). No refills. Substitution is permissible. Follow-up: Blood pressure screening was not performed during this visit because the patient has an active diagnosis of hypertension. Follow-up with: Seun Amaya MD, General Surgeon, , [facility], [address] [place] [address] Follow up in about two days. Call for an appointment. (Electronically signed by Brandin Minor Dr. 04/15/2017 10:25)
--- NOTE | 2017-04-15 11:38 | ED DISCHARGE INSTRUCTIONS ---
Patient: ANGIE TEJEDA General Instructions [facility] VisitID: [id number] [address] [place], [place] [id number] 57y, M Registration Date/Time: 04/15/2017 Chronic alcoholic gastritis. No hemorrhagic gastritis. INSTRUCTIONS Avoid alcohol and NSAIDS. NSAIDS include aspirin, ibuprofen (Advil) and naproxen (Aleve). Avoid fatty and fried/greasy foods. No alcohol. Your Current Medications: CONTINUE TAKING THE FOLLOWING MEDICATIONS: AmLODIPine Besylate Oral. [place] Oral. Prescription Medications: Zantac 150 mg: take 1 orally every 12 hours. Dispense sixty (60). No refills. Substitution is permissible. Follow-up: Blood pressure screening was not performed during this visit because the patient has an active diagnosis of hypertension. Follow-up with: Seun Amaya MD, General Surgeon, , [facility], [address] [place] [address] Follow up in about two days. Call for an appointment. ADDITIONAL INFORMATION Gastritis Versus Ulcer (No Antibiotic Tx) The symptoms of gastritis and peptic ulcer are very similar. Both can cause a dull ache or burning pain in the upper abdomen. Other symptoms include nausea, vomiting, loss of appetite, and belching or bloating. Blood in the vomit or stools (red or black) is a sign of bleeding in the stomach. This requires immediate medical attention. A Peptic Ulcer is an open sore in the lining of the stomach or duodenum (upper intestine). The most common cause of peptic ulcer disease is a bacterial infection (H pylori) in the stomach. Another common cause is taking anti-inflammatory medications (such as ibuprofen, prednisone, and aspirin). Gastritis is an irritation of the stomach lining. It can be acute (recent) or chronic (lasting a long time). Gastritis can be caused by overuse of alcohol or anti-inflammatory medications (such as aspirin, ibuprofen, prednisone). H pyloriinfection can also cause chronic gastritis. Tests for H pyloriare used to screen for bacterial infection. If no infection is found, ulcer and gastritis can be treated by stopping the cause, such as anti-inflammatory medications, alcohol, caffeine, and tobacco, and treating with antacids plus an acid kristopher medication. If H pylori infection is found, antibiotics will be prescribed along with an acid kristopher. Persons 55 years and older may undergo other tests before treatment is started. Two common tests are used to evaluate your symptoms. An upper GI series is an x-ray taken after you drink a chalky liquid called barium. This coats the stomach and allows an ulcer to show up on the x-ray. Another test is called endoscopy during which a long thin tube called an endoscope is passed down your throat to the stomach. A camera at the end of the scope allows the doctor to view inside the stomach to check the cause of your symptoms. Home Care: Take the prescribed acid kristopher medication for the full course of treatment even if you begin to feel better sooner. This medication can take up to several days to fully control your symptoms. If you cant afford the prescribed medication, you can try [id number] acid blockers, such as Pepcid AC, Tagamet, Zantac, or Aciphex. If these do not relieve your symptoms, a stronger acid-kristopher can be tried, such as Prilosec OTC. If you have been prescribed an antibiotic to treat H pyloriinfection, finish the full course of medication. Do so even if you begin to feel better sooner. If you stop the medication too soon, the infection can return and be harder to treat. You can use antacids, such as Tums, Rolaids, Mylanta, or Maalox, for pain. This will be useful the first few days after starting acid blockers when the blockers havent started working yet. Follow the directions on the label. Liquid antacids may work better than tablets. Note that antacids can interfere with absorption of certain medications. Specifically, do not take Tagamet (cimetidine), Zantac (ranitidine), or Carafate (sucralfate) within 1 hour of taking an antacid. Talk with your pharmacist if you have any questions. Although foods do not cause an ulcer, symptoms can be worsened by certain foods. Limit or avoid fatty, fried, and spicy foods, as well as coffee, chocolate, mint, and foods with high acid content such as tomatoes and citrus fruit and juices (orange, grapefruit, lemon). Avoid alcohol, caffeine, and tobacco, which can delay healing. Avoid aspirin and anti-inflammatory medications such as ibuprofen (Advil, Motrin) and naproxen (Naprosyn, Aleve). Acetaminophen (Tylenol) is safe to use. Do not take more than the amount listed on the label. Follow Up with your doctor or as advised. Further testing may be needed. If you do not begin to improve over the next 4 days, contact your doctor. If you had tests, youll be notified of any new findings that affect your care. Get Prompt Medical Attention if any of the following occur: Stomach pain gets worse or moves to the lower right abdomen (appendix area) Chest pain appears or gets worse, or spreads to the back, neck, shoulder, or arm Frequent vomiting (cant keep down liquids) Blood in the stool or vomit (red or black in color) Feeling weak or dizzy, fainting, or trouble breathing Fever of 100.4F (38C) or higher, or as directed by your healthcare provider Bath Diet A bland diet is used for patients with an upset stomach. It consists of foods that are mild and easy to digest. It is better to eat small frequent meals rather than three large meals a day. BEVERAGES OK: Fruit juices, non-caffeinated teas and coffee, non-carbonated [place]son AVOID: Carbonated beverage, caffeinated tea and coffee, all alcoholic beverages BREAD OK: Refined white, wheat or rye bread, ricardo or soda crackers, [place] toast, plain rolls, bagels AVOID: Whole-grain bread CEREAL OK: Refined cereals: cooked or ready to eat AVOID: Whole grain cereals and granola, or those containing bran, seeds or nuts DESSERTS OK: Peanut butter and all others except those to "avoid" AVOID: Chocolate, cocoa, coconut, popcorn, nuts, seeds, jam, marmalade FRUITS OK: Canned, cooked, frozen or fresh fruits without seeds or tough skin AVOID: Olives, skin and seeds of fruit MEATS OK: All fresh or preserved meat, fish and fowl AVOID: Any that are prepared with those spices to "avoid" CHEESE & EGGS OK: Eggs, cottage cheese, cream cheese, other cheeses AVOID: All cheeses made with those spices to "avoid" POTATOES & PASTA OK: Potato, rice, macaroni, noodles, spaghetti AVOID: None SOUPS OK: All soups without heavy seasoning AVOID: Soups made with those spices to "avoid" VEGETABLES OK: Canned, cooked, fresh or frozen mildly flavored vegetables without seeds, skins or coarse fiber AVOID: Vegetables prepared with those spices to "avoid"; skin and seeds of vegetables and those with coarse fiber SPICES OK: Salt, lemon and [place] juice, vinegar, all extracts, jarred, cinnamon, thyme, mace, allspice, paprika AVOID: [place] powder, cloves, pepper, seed spices, garlic, gravy pickles, highly seasoned salad dressings High Fiber Diet Fiber is present in all fruits, vegetables, cereals and grains. Fiber passes through the body undigested. A high fiber diet helps food move through the intestinal tract. The added bulk is helpful in preventing constipation. In people with diverticulosis it serves to clean out the pouches along the colon wall while preventing new ones from forming. A high fiber diet also reduces the risk of colon cancer, decreases blood cholesterol and prevents high blood sugar in people with diabetes. The foods listed below are high in fiber and should be included in your diet. If you are not used to high fiber foods, start with 1 or 2 foods from this list. Every 3-4 days add a new one to your diet until you are eating 4 high fiber foods per day. This should give you 20-35 Gm of fiber/day. It is also important to drink a lot of water when you are on this diet (6-8 glasses a day). Water causes the fiber to swell and increases the benefit. Foods High In Dietary Fiber: BREADS: Made with 100% whole wheat flour; ricardo, wheat or rye crackers; tortillas, bran muffins CEREALS: Whole grain cereal with bran (Chex, Raisin Bran, [place] Bran), oatmeal, rolled oats, granola, wheat flakes, brown rice NUTS: Any nuts FRUITS: All fresh fruits along with edible skins, (bananas, citrus fruit, mangoes, pears, prunes, raisins, apples, pineapple, apricot, melon, jams and marmalades), fruit juices (especially prune juice) VEGETABLES: All types, preferably raw or lightly cooked: especially, celery, eggplant, potatoes,spinach, broccoli, brussel sprouts, winter squash, carrots, cauliflower, soybeans, lentils, fresh and dried beans of all kinds OTHER: Popcorn, any spices Ranitidine Hydrochloride Oral tablet What is this medicine? RANITIDINE (ra VALERIE wagoner) is a type of antihistamine that blocks the release of stomach acid. It is used to treat stomach or intestinal ulcers. It can relieve ulcer pain and discomfort, and the heartburn from acid reflux. How should I use this medicine? Take this medicine by mouth with a glass of water. Follow the directions on the prescription label. If you only take this medicine once a day, take it at bedtime. Take your medicine at regular intervals. Do not take your medicine more often than directed. Do not stop taking except on your doctor's advice. Talk to your adjunct art history instructor regarding the use of this medicine in children. Special care may be needed. What side effects may I notice from receiving this medicine? Side effects that you should report to your doctor or health life care planner as soon as possible: agitation, nervousness, depression, hallucinations allergic reactions like skin rash, itching or hives, swelling of the face, lips, or tongue breast enlargement in both males and females breathing problems redness, blistering, peeling or loosening of the skin, including inside the mouth unusual bleeding or bruising unusually weak or tired vomiting yellowing of the skin or eyes Side effects that usually do not require medical attention (report to your doctor or health life care planner if they continue or are bothersome): constipation or diarrhea dizziness headache nausea What may interact with this medicine? atazanavir delavirdine gefitinib glipizide ketoconazole midazolam procainamide propantheline triazolam warfarin What if I miss a dose? If you miss a dose, take it as soon as you can. If it is almost time for your next dose, take only that dose. Do not take double or extra doses. Where should I keep my medicine? Keep out of the reach of children. Store at room temperature between 15 and 30 degrees C (59 and 86 degrees F). Protect from light and moisture. Keep container tightly closed. Throw away any unused medicine after the expiration date. What should I tell my health care provider before I take this medicine? They need to know if you have any of these conditions: kidney disease liver disease porphyria an unusual or allergic reaction to ranitidine, other medicines, foods, dyes, or preservatives or trying to get breast-feeding What should I watch for while using this medicine? Tell your doctor or health life care planner if your condition does not start to get better or gets worse. You may need to take this medicine for several days as prescribed before your symptoms get better. Finish the full course of tablets prescribed, even if you feel better. Do not smoke cigarettes or drink alcohol. These increase irritation in your stomach and can lengthen the time it will take for ulcers to heal. Cigarettes and alcohol can also make acid reflux or heartburn worse. If you get black, tarry stools or vomit up what looks like coffee grounds, call your doctor or health life care planner at once. You may have a bleeding ulcer. You have been given the following additional information: Gastritis Vs. Ulcer Diet, Bath (Adult) Diet, High Fiber Ranitidine Hydrochloride Oral tablet (Electronically signed by Brandin Minor Dr. 04/15/2017 10:25)
--- NOTE | 2017-04-15 11:38 | ED MAR SUMMARY ---
..... Medication Administration Record [facility] [address] [place] [address] Patient: ANGIE TEJEDA Visit ID: [id number] 57y, M Weight: 101.6 kg Height/Length: 69 in BMI: 33.1 ALLERGIES: None Given 09:29 04/15/2017 Una Weaver R.N. Medication Administered: GI COCKTAIL WHITE [PO] (SIMETHICONE), Dose: 30 mL PO. Medication Ordered: GI Cocktail WHITE PO 30 mL with Lidocaine Viscous Mouth/Throat 15 mL, Maalox Plus Oral 15 mL (NOW). Start 09:34 04/15/2017 Una Weaver R.N., Stop 10:04/15/2017 Una Weaver R.N. Medication Administered: IV NS (SALINE), Dose: IV Fluids over 1 hour(s), Rate: 999 mL/hr, Dispensed: 1000 mL bag, Site: #1 right AC. Medication Ordered: IV NS : initial bolus none -, then 1000 mL/hr for X1 (NOW). Start 10:00 04/15/2017 Una Weaver RDannN., Stop 10:26 04/15/2017 Una Weaver R.N. Medication Administered: FAMOTIDINE [IVPB], Dose: 20 mg IVPB over 30 minute(s), Rate: 100 mL/hr, Dispensed: 50 mL bag, Site: #1 right AC. Medication Ordered: Famotidine IV 20 mg/50mL (NOW).
--- NOTE | 2017-04-15 11:38 | ED DISCHARGE INSTRUCTIONS ---
Patient: ANGIE TEJEDA General Instructions [facility] VisitID: [id number] [address] [place], [place] [id number] 57y, M Registration Date/Time: 04/15/2017 Chronic alcoholic gastritis. No hemorrhagic gastritis. INSTRUCTIONS Avoid alcohol and NSAIDS. NSAIDS include aspirin, ibuprofen (Advil) and naproxen (Aleve). Avoid fatty and fried/greasy foods. No alcohol. Your Current Medications: CONTINUE TAKING THE FOLLOWING MEDICATIONS: AmLODIPine Besylate Oral. Traer Oral. Prescription Medications: Zantac 150 mg: take 1 orally every 12 hours. Dispense sixty (60). No refills. Substitution is permissible. Follow-up: Blood pressure screening was not performed during this visit because the patient has an active diagnosis of hypertension. Follow-up with: Seun Amaya MD, General Surgeon, , [facility], [address] [place] [address] Follow up in about two days. Call for an appointment. ADDITIONAL INFORMATION Gastritis Versus Ulcer (No Antibiotic Tx) The symptoms of gastritis and peptic ulcer are very similar. Both can cause a dull ache or burning pain in the upper abdomen. Other symptoms include nausea, vomiting, loss of appetite, and belching or bloating. Blood in the vomit or stools (red or black) is a sign of bleeding in the stomach. This requires immediate medical attention. A Peptic Ulcer is an open sore in the lining of the stomach or duodenum (upper intestine). The most common cause of peptic ulcer disease is a bacterial infection (H pylori) in the stomach. Another common cause is taking anti-inflammatory medications (such as ibuprofen, prednisone, and aspirin). Gastritis is an irritation of the stomach lining. It can be acute (recent) or chronic (lasting a long time). Gastritis can be caused by overuse of alcohol or anti-inflammatory medications (such as aspirin, ibuprofen, prednisone). H pyloriinfection can also cause chronic gastritis. Tests for H pyloriare used to screen for bacterial infection. If no infection is found, ulcer and gastritis can be treated by stopping the cause, such as anti-inflammatory medications, alcohol, caffeine, and tobacco, and treating with antacids plus an acid kristopher medication. If H pylori infection is found, antibiotics will be prescribed along with an acid kristopher. Persons 55 years and older may undergo other tests before treatment is started. Two common tests are used to evaluate your symptoms. An upper GI series is an x-ray taken after you drink a chalky liquid called barium. This coats the stomach and allows an ulcer to show up on the x-ray. Another test is called endoscopy during which a long thin tube called an endoscope is passed down your throat to the stomach. A camera at the end of the scope allows the doctor to view inside the stomach to check the cause of your symptoms. Home Care: Take the prescribed acid kristopher medication for the full course of treatment even if you begin to feel better sooner. This medication can take up to several days to fully control your symptoms. If you cant afford the prescribed medication, you can try [id number] acid blockers, such as Pepcid AC, Tagamet, Zantac, or Aciphex. If these do not relieve your symptoms, a stronger acid-kristopher can be tried, such as Prilosec OTC. If you have been prescribed an antibiotic to treat H pyloriinfection, finish the full course of medication. Do so even if you begin to feel better sooner. If you stop the medication too soon, the infection can return and be harder to treat. You can use antacids, such as Tums, Rolaids, Mylanta, or Maalox, for pain. This will be useful the first few days after starting acid blockers when the blockers havent started working yet. Follow the directions on the label. Liquid antacids may work better than tablets. Note that antacids can interfere with absorption of certain medications. Specifically, do not take Tagamet (cimetidine), Zantac (ranitidine), or Carafate (sucralfate) within 1 hour of taking an antacid. Talk with your pharmacist if you have any questions. Although foods do not cause an ulcer, symptoms can be worsened by certain foods. Limit or avoid fatty, fried, and spicy foods, as well as coffee, chocolate, mint, and foods with high acid content such as tomatoes and citrus fruit and juices (orange, grapefruit, lemon). Avoid alcohol, caffeine, and tobacco, which can delay healing. Avoid aspirin and anti-inflammatory medications such as ibuprofen (Advil, Motrin) and naproxen (Naprosyn, Aleve). Acetaminophen (Tylenol) is safe to use. Do not take more than the amount listed on the label. Follow Up with your doctor or as advised. Further testing may be needed. If you do not begin to improve over the next 4 days, contact your doctor. If you had tests, youll be notified of any new findings that affect your care. Get Prompt Medical Attention if any of the following occur: Stomach pain gets worse or moves to the lower right abdomen (appendix area) Chest pain appears or gets worse, or spreads to the back, neck, shoulder, or arm Frequent vomiting (cant keep down liquids) Blood in the stool or vomit (red or black in color) Feeling weak or dizzy, fainting, or trouble breathing Fever of 100.4F (38C) or higher, or as directed by your healthcare provider Delmar Diet A bland diet is used for patients with an upset stomach. It consists of foods that are mild and easy to digest. It is better to eat small frequent meals rather than three large meals a day. BEVERAGES OK: Fruit juices, non-caffeinated teas and coffee, non-carbonated watson AVOID: Carbonated beverage, caffeinated tea and coffee, all alcoholic beverages BREAD OK: Refined white, wheat or rye bread, ricardo or soda crackers, Ashley toast, plain rolls, bagels AVOID: Whole-grain bread CEREAL OK: Refined cereals: cooked or ready to eat AVOID: Whole grain cereals and granola, or those containing bran, seeds or nuts DESSERTS OK: Peanut butter and all others except those to "avoid" AVOID: Chocolate, cocoa, coconut, popcorn, nuts, seeds, jam, marmalade FRUITS OK: Canned, cooked, frozen or fresh fruits without seeds or tough skin AVOID: Olives, skin and seeds of fruit MEATS OK: All fresh or preserved meat, fish and fowl AVOID: Any that are prepared with those spices to "avoid" CHEESE & EGGS OK: Eggs, cottage cheese, cream cheese, other cheeses AVOID: All cheeses made with those spices to "avoid" POTATOES & PASTA OK: Potato, rice, macaroni, noodles, spaghetti AVOID: None SOUPS OK: All soups without heavy seasoning AVOID: Soups made with those spices to "avoid" VEGETABLES OK: Canned, cooked, fresh or frozen mildly flavored vegetables without seeds, skins or coarse fiber AVOID: Vegetables prepared with those spices to "avoid"; skin and seeds of vegetables and those with coarse fiber SPICES OK: Salt, lemon and atka juice, vinegar, all extracts, jarred, cinnamon, thyme, mace, allspice, paprika AVOID: Sinclair powder, cloves, pepper, seed spices, garlic, gravy pickles, highly seasoned salad dressings High Fiber Diet Fiber is present in all fruits, vegetables, cereals and grains. Fiber passes through the body undigested. A high fiber diet helps food move through the intestinal tract. The added bulk is helpful in preventing constipation. In people with diverticulosis it serves to clean out the pouches along the colon wall while preventing new ones from forming. A high fiber diet also reduces the risk of colon cancer, decreases blood cholesterol and prevents high blood sugar in people with diabetes. The foods listed below are high in fiber and should be included in your diet. If you are not used to high fiber foods, start with 1 or 2 foods from this list. Every 3-4 days add a new one to your diet until you are eating 4 high fiber foods per day. This should give you 20-35 Gm of fiber/day. It is also important to drink a lot of water when you are on this diet (6-8 glasses a day). Water causes the fiber to swell and increases the benefit. Foods High In Dietary Fiber: BREADS: Made with 100% whole wheat flour; ricardo, wheat or rye crackers; tortillas, bran muffins CEREALS: Whole grain cereal with bran (Chex, Raisin Bran, Cypress Bran), oatmeal, rolled oats, granola, wheat flakes, brown rice NUTS: Any nuts FRUITS: All fresh fruits along with edible skins, (bananas, citrus fruit, mangoes, pears, prunes, raisins, apples, pineapple, apricot, melon, jams and marmalades), fruit juices (especially prune juice) VEGETABLES: All types, preferably raw or lightly cooked: especially, celery, eggplant, potatoes,spinach, broccoli, brussel sprouts, winter squash, carrots, cauliflower, soybeans, lentils, fresh and dried beans of all kinds OTHER: Popcorn, any spices Ranitidine Hydrochloride Oral tablet What is this medicine? RANITIDINE (ra VALERIE wagoner) is a type of antihistamine that blocks the release of stomach acid. It is used to treat stomach or intestinal ulcers. It can relieve ulcer pain and discomfort, and the heartburn from acid reflux. How should I use this medicine? Take this medicine by mouth with a glass of water. Follow the directions on the prescription label. If you only take this medicine once a day, take it at bedtime. Take your medicine at regular intervals. Do not take your medicine more often than directed. Do not stop taking except on your doctor's advice. Talk to your director of scientific research regarding the use of this medicine in children. Special care may be needed. What side effects may I notice from receiving this medicine? Side effects that you should report to your doctor or health pediatric critical care nurse as soon as possible: agitation, nervousness, depression, hallucinations allergic reactions like skin rash, itching or hives, swelling of the face, lips, or tongue breast enlargement in both males and females breathing problems redness, blistering, peeling or loosening of the skin, including inside the mouth unusual bleeding or bruising unusually weak or tired vomiting yellowing of the skin or eyes Side effects that usually do not require medical attention (report to your doctor or health pediatric critical care nurse if they continue or are bothersome): constipation or diarrhea dizziness headache nausea What may interact with this medicine? atazanavir delavirdine gefitinib glipizide ketoconazole midazolam procainamide propantheline triazolam warfarin What if I miss a dose? If you miss a dose, take it as soon as you can. If it is almost time for your next dose, take only that dose. Do not take double or extra doses. Where should I keep my medicine? Keep out of the reach of children. Store at room temperature between 15 and 30 degrees C (59 and 86 degrees F). Protect from light and moisture. Keep container tightly closed. Throw away any unused medicine after the expiration date. What should I tell my health care provider before I take this medicine? They need to know if you have any of these conditions: kidney disease liver disease porphyria an unusual or allergic reaction to ranitidine, other medicines, foods, dyes, or preservatives or trying to get breast-feeding What should I watch for while using this medicine? Tell your doctor or health pediatric critical care nurse if your condition does not start to get better or gets worse. You may need to take this medicine for several days as prescribed before your symptoms get better. Finish the full course of tablets prescribed, even if you feel better. Do not smoke cigarettes or drink alcohol. These increase irritation in your stomach and can lengthen the time it will take for ulcers to heal. Cigarettes and alcohol can also make acid reflux or heartburn worse. If you get black, tarry stools or vomit up what looks like coffee grounds, call your doctor or health pediatric critical care nurse at once. You may have a bleeding ulcer. You have been given the following additional information: Gastritis Vs. Ulcer Diet, Delmar (Adult) Diet, High Fiber Ranitidine Hydrochloride Oral tablet (Electronically signed by Brandin Minor Dr. 04/15/2017 10:25)
--- NOTE | 2017-04-15 11:38 | ED MED RECONCILIATION SUMMARY ---
Patient: ANGIE TEJEDA Medication Reconciliation Report [facility] VisitID: [id number] [address] [place] [address] 57y, M Registration Date/Time: 04/15/2017 Weight: 101.6 kg Height/Length: 69 in. BMI: 33.1 ALLERGIES: None The patient's Home Medications are listed below: CONTINUE TAKING THE FOLLOWING MEDICATIONS: AmLODIPine Besylate Oral [place] Oral The source(s) of the original Home Medication information: patient The following Medications were given to the patient in the Emergency Department: IV NS IV Fluids bolus 0, then 999 mL/hr, administered: 04/15/2017 9:34:00 AM GI COCKTAIL WHITE [PO] PO 30 mL, administered: 04/15/2017 9:29:00 AM Famotidine [IVPB] IVPB bolus 0, then 20 mg 100 mL/hr, administered: 04/15/2017 10:00:00 AM The following Medications were prescribed to the patient: Zantac 150 mg: take 1 orally every 12 hours. Dispense sixty (60). No refills. Substitution is permissible. -- Brandin Minor Dr.
--- NOTE | 2017-04-15 11:38 | ED MED RECONCILIATION SUMMARY ---
Patient: ANGIE TEJEDA Medication Reconciliation Report [facility] VisitID: [id number] [address] [place] [address] 57y, M Registration Date/Time: 04/15/2017 Weight: 101.6 kg Height/Length: 69 in. BMI: 33.1 ALLERGIES: None The patient's Home Medications are listed below: CONTINUE TAKING THE FOLLOWING MEDICATIONS: AmLODIPine Besylate Oral [place] Oral The source(s) of the original Home Medication information: patient The following Medications were given to the patient in the Emergency Department: IV NS IV Fluids bolus 0, then 999 mL/hr, administered: 04/15/2017 9:34:00 AM GI COCKTAIL WHITE [PO] PO 30 mL, administered: 04/15/2017 9:29:00 AM Famotidine [IVPB] IVPB bolus 0, then 20 mg 100 mL/hr, administered: 04/15/2017 10:00:00 AM The following Medications were prescribed to the patient: Zantac 150 mg: take 1 orally every 12 hours. Dispense sixty (60). No refills. Substitution is permissible. -- Brandin Minor Dr.
--- NOTE | 2017-04-15 11:38 | ED MAR SUMMARY ---
..... Medication Administration Record [facility] [address] [place] [address] Patient: ANGIE TEJEDA Visit ID: [id number] 57y, M Weight: 101.6 kg Height/Length: 69 in BMI: 33.1 ALLERGIES: None Given 09:29 04/15/2017 Una Weaver R.N. Medication Administered: GI COCKTAIL WHITE [PO] (SIMETHICONE), Dose: 30 mL PO. Medication Ordered: GI Cocktail WHITE PO 30 mL with Lidocaine Viscous Mouth/Throat 15 mL, Maalox Plus Oral 15 mL (NOW). Start 09:34 04/15/2017 Una Weaver R.N., Stop 10:04/15/2017 Una Weaver R.N. Medication Administered: IV NS (SALINE), Dose: IV Fluids over 1 hour(s), Rate: 999 mL/hr, Dispensed: 1000 mL bag, Site: #1 right AC. Medication Ordered: IV NS : initial bolus none -, then 1000 mL/hr for X1 (NOW). Start 10:00 04/15/2017 Una Weaver RDannN., Stop 10:26 04/15/2017 Una Weaver R.N. Medication Administered: FAMOTIDINE [IVPB], Dose: 20 mg IVPB over 30 minute(s), Rate: 100 mL/hr, Dispensed: 50 mL bag, Site: #1 right AC. Medication Ordered: Famotidine IV 20 mg/50mL (NOW).
== END 2017-04-15 10:40 | disposition home or self-care (01) ==
LOC: ED SRH 08:38
DX: K29.20 Alcoholic gastritis without bleeding (principal); I10 Essential (primary) hypertension
CPT/HCPCS: 90004; 90100; 92235; 92530; 92760; 92761; 92762; 92763; 92764; 92765; 92766; 92767; 95059